=== PATIENT | female | born 1975 | race Two or more races ===

== ENCOUNTER 2025-03-12 16:42 | Emergency (ER) | payer SELFPAY ==
[2025-03-12 17:33] VITALS: BP 167/78; PULSE 91; RESP 18; TEMP 37; O2SAT 98; BMI 26.3
--- NOTE | 2025-03-12 17:34 | ED.GENADULT ---
HPI - General Adult General Chief complaint: General Medical Stated complaint: kidney pain, bee sting allergic/ low bp Related Data Allergies Allergy/AdvReac Type Severity Reaction Status Date / Time bee pollen (bees) Allergy Unknown Verified 03/12/25 17:36 mold Allergy Unknown Verified 03/12/25 17:36 [facility] Social History Social History Advance Directives: No Advance Directives Information Provided: No Physical Exam ED Vital Signs: Vital Signs - 24 hr 03/12/25 17:33 Temperature 98.6 F Pulse Rate 91 Respiratory Rate 18 Blood Pressure 167/78 H Pulse Oximetry 98 Oxygen Delivery Method Room Air BMI result Body Mass Index 26.3 Course Course Course Narrative: This is a rapid medical exam performed by Zaki Keith NP: Additional HPI, ROS, PE not included below will be deferred to primary provider. Patient is a 50-year-old female presenting to the ED with complaint of lower back pain, worse on left x 3 weeks. Saw PCP 3 wks ago and told she had kidney stones, did not have any imaging, was prescribed abx and other medications but not feeling better. Then at lunch today, got stung by a bee on her finger, now having chest pain since that time. Patient is in no acute distress, no angioedema, LS CTA. BP 167/78 in triage. Plan: EKG, labs, UA Patient left the emergency department before myself or any of the other clinicians could review or explain physical exam findings, test results, need or lack there of for additional testing, treatment options, or a treatment plan. Medical Decision Making Lab Data 03/12/25 17:42 03/12/25 17:42 Labs: Lab Results 03/12/25 03/12/25 Range/Units 17:42 17:52 WBC 9.5 (4.8-10.8) X10*3/uL RBC 4.54 (4.20-5.50) X10*6/uL Hgb 13.6 (12.0-16.0) g/dl Hct 40.6 (37.0-47.0) % MCV 89.4 (80.0-98.0) fL MCH 30.0 (27.0-33.0) pg MCHC 33.5 (31.0-35.0) g/dl RDW 12.8 (11.0-16.0) % Plt Count 318 (160-400) X10*3/uL MPV 11.5 (9.4-12.3) fL Immature Gran % (Auto) 0.5 H (0.0-0.4) % Neut % (Auto) 56.9 (45-73) % Lymph % (Auto) 35.2 (20-40) % [place] % (Auto) 6.1 (2-11) % Eos % (Auto) 0.5 (0-4) % Baso % (Auto) 0.8 (0-2) % Lymph # (Auto) 3.4 (1.2-4.9) X10*3/uL [place] # (Auto) 0.6 (0.1-1.2) X10*3/uL Eos # (Auto) 0.1 (0.0-0.4) X10*3/uL Baso # (Auto) 0.1 (0.0-0.2) X10*3/uL Abs Immat Gran (auto) 0.05 H (0.00-0.03) X10*3/uL Absolute Neuts (auto) 5.4 (2.0-8.3) x10*3/uL Absolute Nucleated RBC 0.000 (0.0-0.012) X10*3/uL Nucleated RBC % (auto) 0.0 (0.0-0.2) /100WBC Sodium 137 (135-145) mmol/L Potassium 3.6 (3.3-5.1) mmol/L Chloride 106 (96-108) mmol/L Carbon Dioxide 24 (22-29) mmol/L Anion Gap 11 L (12-20) BUN 11 (9-16) mg/dL Creatinine 0.65 (0.5-1.4) mg/dL Estim Creat Clear Calc 82.6 Estimated GFR > 60 Random Glucose 76 (60-115) mg/dL Calcium 9.2 (8.4-10.2) mg/dL Total Bilirubin 0.4 (0.0-1.0) mg/dL AST 20 (5-31) U/L ALT 11 (0-31) U/L Alkaline Phosphatase 31 L (39-117) U/L Total Protein 7.2 (6.5-8.0) g/dL Albumin 4.3 (3.5-5.0) g/dL Urine Color Yellow Urine Appearance Clear Urine pH 5.5 (5.0-9.0) Ur Specific [place] 1.020 (1.005-1.025) Urine Protein Negative (Neg-Trace) mg/dL Urine Glucose (UA) Negative (Negative) mg/dL Urine Ketones 15 (Negative) mg/dL Urine Blood Negative (Negative) Urine Nitrite Negative (Negative) Ur Leukocyte Esterase Negative (Negative) Discharge Plan Discharge Clinical Impression: Flank pain Patient Disposition: Left W/O Completing Treatment Discharge Date/Time: 03/12/25 20:21
--- NOTE | 2025-03-12 17:36 | ECG_ITS ---
Test Reason : CHEST PAIN Blood Pressure : */* mmHG Vent. Rate : 78 BPM Atrial Rate : 78 BPM P-R Int : 130 ms QRS Dur : 88 ms QT Int : 362 ms P-R-T Axes : 52 55 43 degrees QTcB Int : 412 ms Normal sinus rhythm Normal ECG No previous ECGs available Referred By: Yisel Keith Electronically Signed By: Claude Kessler
[2025-03-12 18:03] LABS: MANUAL DIFF FLAG NO
[2025-03-12 18:11] LABS: Hematocrit 40.6 % (37.0-47.0); Hemoglobin 13.6 g/dl (12.0-16.0); Imm Gran Abs Auto 0.05 X10*3/uL (0.00-0.03); Imm Gran Pct Auto 0.5 % (0.0-0.4); Lymphocytes Absolute Auto 3.4 X10*3/uL (1.2-4.9); Mean Corpuscular HGB Conc 33.5 g/dl (31.0-35.0); Mean Corpuscular Hemoglobin 30.0 pg (27.0-33.0); Mean Corpuscular Volume 89.4 fL (80.0-98.0); NRBC Abs Auto 0.000 X10*3/uL (0.0-0.012); NRBC Pct Auto 0.0 /100WBC (0.0-0.2); Platelet Count 318 X10*3/uL (160-400); Red Blood Count 4.54 X10*6/uL (4.20-5.50); White Blood Count 9.5 X10*3/uL (4.8-10.8)
[2025-03-12 18:17] LABS: Appearance Urine Clear; Glucose Urine UA Negative (Negative); PH 5.5 (5.0-9.0); Specific Gravity - Urine 1.020 (1.005-1.025)
[2025-03-12 18:17] LABS: Alanine Aminotransferase 11 U/L (0-31); Albumin Level 4.3 g/dL (3.5-5.0); Alkaline Phosphatase 31 U/L (39-117); Anion Gap 11 (12-20); Aspartate Amino Transferase 20 U/L (5-31); Blood Urea Nitrogen 11 mg/dL (9-16); Calcium 9.2 mg/dL (8.4-10.2); Carbon Dioxide 24 mmol/L (22-29); Chloride 106 mmol/L (96-108); Creatinine Clr Calc Pharmacy 82.6; Estimated Glomerular Filt Rate > 60; Potassium 3.6 mmol/L (3.3-5.1); Sodium 137 mmol/L (135-145); Total Protein 7.2 g/dL (6.5-8.0)
--- OUTSIDE RECORDS SUMMARY | 2025-03-12 20:20 | XMS_ITS | Clinical Summary ---
Author Organization [facility] it Address [address] [place] [address] Care Team Providers Care Bite Block Maker Name Role Phone Porter Lay MD Primary Care Provider [phone] Surgical History Surgery Date Site/Laterality Comments HYSTERECTOMY 2005 PROCEDURE: HISTORICAL HYSTERECTOMY; COMMENT: [facility] TUBAL LIGATION 2005 PROCEDURE: HISTORICAL TUBAL LIGATION; COMMENT: [facility] CHOLECYSTECTOMY 12/02/2020 N/A PROCEDURE: [place] LAPAROSCOPY SURG CHOLECYSTECTOMY; COMMENT: [facility] BLADDER SUSPENSION 2006 PROCEDURE: HISTORICAL BLADDER SUSPENSION; COMMENT: reports at [facility] Medical History Medical History Date Comments Anemia DX:Anemia Asthma DX:Asthma Abnormal cytological finding in specimen from cervix 02/14/2016 DX:Abnormal cytological find ing in specimen from cervix; COMMENT: ASCUS + HPV Essential hypertension DX:Essent ial hypertension Generalized osteoarthrosis, unspecified site DX:Generalized osteoarthrosi s, unspecified site Chlamydia contact, treated 07/2020 DX:Ch lamydia contact, treated Family History Medical History Relation Name Comments Arthritis Mother Breast cancer Mother diagnosed 09/26 23- followed by Dary Hypertension Mother Breast cancer Mother's side aunt moms sister Hypertension Sister x1 Thyroid disease Sister x1 Relation Name Status Comments Brother x3 Father Mother Alive Mother's side aunt Alive Sister x1 Social History Tobacco Use Types Packs/Day Years Used Date Smoking Tobacco: Some Days Smokeless Tobacco: Never Alcohol Use Standard Drinks/Week Comments No 0 (1 standard drink = 0.6 oz pur e alcohol) Comments Unknown Sex and Gender Information Value Date Recorded Sex Assigned at Not on file Legal Sex Female 10:48 PM EST Gender Identity Not on file Sexual Orientation Not on file Obstetrics History Last Filed Vital Signs Vital Sign Reading Time Taken Comments Blood Pressure 124/82 03/25/2024 3:22 PM EDT Pulse 92 03/25/2024 3:22 PM EDT Temperature - - Respiratory Rate - - Oxygen Saturation - - Inhaled Oxygen Concentration - - Weight 56.7 kg (125 lb) 03/25/2024 3:22 PM EDT Height 147.3 cm (4' 10 ) 11/21/2023 3:21 PM EDT Body Mass Index 26.13 11/21/2023 3:21 PM EDT Plan of Treatment Health Maintenance Due Date Last Done Comments DTaP,Tdap,and Td Vaccines (1 - Tdap) 02/07/1992 Hepatitis B Vaccines (1 of 3 - 19+ 3-dose series) 02/07/1992 Pneumococcal Vaccine: 50+ Years (1 of 2 - PCV) 02/07/1992 Cervical Cancer Screening: P ap Smear 1994 Cholesterol Screening (Lipid Panel) 06/17/2022 Colorectal Cancer Screening: Colonoscopy 06/17/2022 Hepatitis C Screening 06/17/2022 Social Influencers of Health Screening 06/17/2022 Zoster Vaccines (1 of 2) 2023 Depression Screening 07/09/2024 COVID-19 Vaccine ( - 2023-2 5 season) 2025 Influenza Vaccine (#1) 2025 Breast Cancer Screening 11/28/2025 11/29/19 24, 11/28/2023 HIV Screening Completed 04/04/2024 HIB Vaccines Aged Out No longer eligi ble based on patient's age to complete this topic HPV Vaccines Aged Out No longer eligi ble based on patient's age to complete this topic Hepatitis A Vaccines Aged Out No long er eligible based on patient's age to complete this topic IPV Vaccines Aged Out No longer eligi ble based on patient's age to complete this topic MMR Vaccines Aged Out No longer eligi ble based on patient's age to complete this topic Meningococcal ACWY Vaccine Aged Out N o longer eligible based on patient's age to complete this topic Meningococcal B Vaccine Aged Out No l onger eligible based on patient's age to complete this topic RSV Immunization Patients Under 20 months Aged Out No longer eligible b ased on patient's age to complete this topic Varicella Vaccines Aged Out No longer eligible based on patient's age to complete this topic Procedures Procedure Name Priority Date/Time Associated Diagnosis Comments [facility] SCREENING DIGITAL Routine 11/29/2023 8:18 AM EDT Encounter for screening mammogram for malignant neoplasm of breast from Last 3 Months or Most Recently Relevant to Health Maintenance Results * [facility] SCREENING DIGITAL (11/29/2023 8:18 AM EDT) Anatomical Region Laterality Modality Mammography 11/28/2023 1:44 PM EDT Narrative 11/29/2023 8:18 AM EDT [facility] Diagnostic Imaging Department [address] [place] [address] Patient: EBONY ZELAYA /Age/Sex: 1975 - 48 - F Unit#: [id number] Location/Status: [facility] CLI Mnemonic/Ordering Site: [facility] Ordering Physician: JOHN ROTH CNM [facility] Screening Digital - 11/28/23 - [id number] Report Status:Signed EXAM: [facility] Screening Digital EXAM DATE AND TIME: 11/28/2023 2:10 PM HISTORY: Screening. Family history of breast carcinoma including mother at age 80 and maternal aunt. COMPARISON: 03/31/17, 03/03/16, 05/27/12 TECHNIQUE: Bilateral digital breast tomosynthesis was performed in the CC and MLO projections. Computer aided detection with [employer] 3D 3.1 was employed. TISSUE DENSITY: b. There are scattered areas of fibroglandular density. FINDINGS: No suspicious masses, grouped microcalcifications, or areas of architectural distortion are seen. Vascular calcification is present. The skin is unremarkable. IMPRESSION: Stable mammographic appearance of the breasts. No evidence of malignancy is seen. A negative mammogram in the presence of a clinically suspicious palpable abnormality does not preclude the possibility of malignancy or alter the indications for biopsy. BI-RADS: Category 2: Benign RECOMMENDATION(S): 1: Routine screening mammogram BILATERAL in 1 year. Dictating Physician: MIESHA JOSHI MD Electronically Signed by: MIESHA JOSHI MD Dic Date/Time: 11/29/23816 Sign date/Time: 11/29/23817 Procedure Note Miesha Joshi MD - 02/25/2024 [facility] Diagnostic Imaging Department [address] [place] [address] Patient: EBONY ZELAYA /Age/Sex: 1975 - 48 - F Unit#: [id number] Location/Status: [facility] Mnemonic/Ordering Site: [facility] Ordering Physician: JOHN ROTH CNM [facility] Screening Digital - 11/28/23 - [id number] Report Status:Signed EXAM: [facility] Screening Digital EXAM DATE AND TIME: 11/28/2023 2:10 PM HISTORY: Screening. Family history of breast carcinoma including motherat age 80 and maternal aunt. COMPARISON: 03/31/17, 03/03/16, 05/27/12 TECHNIQUE: Bilateral digital breast tomosynthesis was performed in the CCand MLO projections. Computer aided detection with [employer] 3D 3.1was employed. TISSUE DENSITY: b. There are scattered areas of fibroglandular density. FINDINGS: No suspicious masses, grouped microcalcifications, or areas ofarchitectural distortion are seen. Vascular calcification is present. The skin is unremarkable. IMPRESSION: Stable mammographic appearance of the breasts. No evidence of malignancyis seen. A negative mammogram in the presence of a clinically suspicious palpable abnormality does not preclude the possibility of malignancy or alter the indications for biopsy. BI-RADS: Category 2: Benign RECOMMENDATION(S): 1: Routine screening mammogram BILATERAL in 1 year. Dictating Physician: MIESHA JOSHI MD Electronically Signed by: MIESHA JOSHI MD Dic Date/Time: 11/29/23816 Sign date/Time: 11/29/23817 [facility] IM BI PROCEDURES Final Resul t from Last 3 Months or Most Recently Relevant to Health Maintenance Care Teams Bite Block Maker Relationship Specialty Start Date End Date Porter Lay MD [address] [place] [id number] PCP - General 02/22/21
== END 2025-03-12 20:21 | disposition left against medical advice (07) ==
PROVIDERS: Registered Nurse Emergency; Emergency Provider Emergency Medicine; PCP Physician Assistant
DX: R10.2 Pelvic and perineal pain (principal); R07.89 Other chest pain; I95.9 Hypotension, unspecified; Z79.899 Other long term (current) drug therapy
CPT/HCPCS: 36415; 80053; 81003; 85025; 93005; 99283

== ENCOUNTER → 2025-03-12 17:36 | Outpatient (BNV) | payer SELFPAY | PROVIDERS: Emergency Provider Emergency Medicine; PCP Physician Assistant; Visit Provider Internal Medicine Cardiovascular Disease | DX: R07.9 Chest pain, unspecified (principal) | CPT/HCPCS: 93010 ==